=== PATIENT | male | born 1975 | race Caucasian/White ===

== ENCOUNTER 2016-08-10 10:37 | Emergency (ER) | payer MEDICAID ==
[2016-08-10 10:50] VITALS: PULSE 90; RESP 16; TEMP 98.1; O2SAT 94
--- NOTE | 2016-08-10 11:26 | EDPHY ---
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 He states this is similar to when he had a DVT and PE in the past. This was 2 years ago. He was on Coumadin for about 8 months. He is not currently anticoagulated. That DVT was caused secondary to an acute hospitalization and immobility. Denies any chest pain or shortness of breath. No fevers or chills. He did take an oxycodone last night for the pain. ROS: 10 point Review of Systems is negative except as noted in the HPI. Physical exam: Gen: Awake, Alert, No Distress HEENT: Nose: no rhinorrhea Eyes: PERRLA, EOMI Mouth: Moist mucosa Neck: Supple, no JVD Chest: nontender, lungs clear to auscultation Heart: S1, S2 normal, no murmur Abd: Soft, non-tender, no guarding Back: no CVA tenderness, no midline tenderness Ext: Left calf is mildly tender. There is swelling to his ankle and his foot, 2+ nonpitting. There is mild erythema. He has full flexion extension of his knee without pain or discomfort. Skin: no rash Neuro: CN II-XII intact, Sensation grossly intact, Strength 5/5 in bilateral upper and lower extremities ED Course: The left leg duplex ultrasound as interpreted by Dr. Delvalle: Recanalized with old left femoral to popliteal DVT, no acute findings. 40-year-old male with left foot swelling with an old left DVT. No acute clot at this time. Once patient received notification of his negative ultrasound he left the department prior to my re-evaluation and discussion with him. He did not stay for discharge instructions. General Time Seen by Provider: 08/10/16 11:04 Initial Vital Signs: Initial Vital Signs Temperature (C) 36.7 C 08/10/16 10:40 Heart Rate 90 08/10/16 10:40 Respiratory Rate 16 08/10/16 10:40 O2 Sat (%) 94 08/10/16 10:40 O2 Delivery Mode Room Air Allergies/Adverse Reactions: No Known Allergies Allergy (Verified 08/10/16 10:46) Home Medications: Medication Instructions Recorded GABAPENTIN 1,200 mg PO TID #30 tablet 02/29/16 Oxycodone Ir (*) 05/06/16 Pregabalin [Lyrica 75mg (*)] 75 mg PO BID 08/10/16 Departure - Departure Disposition: Home, Routine, Self-Care Clinical Impression: Swelling of lower extremity Condition: Good Instructions: Leg Edema (ED) Additional Instructions: Follow up with her primary care doctor in 3-4 days if not improved. Return to the emergency department for any concerns. Referrals: NONE *PRIMARY CARE P,. [Primary Care Provider] - As per Instructions
--- NOTE | 2016-08-10 12:38 | US ---
Venous Doppler Study of the left Lower Extremity Clinical Indications: Left foot swelling since last evening. Previous history of DVT left lower extr emity 2 years ago. Technique: High-frequency transducer was used for imaging and Doppler study of the deep veins of the leg from the upper calf to the groin. Pulsed Doppler and color Doppler were utilized, along with va rious maneuvers, to assess flow in the deep veins. Findings: The deep veins of the groin, thigh, knee, and upper calf are well displayed. There is part ial thrombus along the wall of the left mid to distal femoral vein and into the popliteal vein that p robably represents recanalized chronic thrombus. Acute intraluminal thrombus is not confirmed on imag es. The femoral vein is partially compressible in these locations. Doppler flow patterns are unremark able. There is no evidence of acute deep venous thrombosis. There is normal compression of the great er saphenous vein without superficial thrombosis. Impression: 1. No evidence of acute deep vein thrombosis in the left leg. 2. Probable recanalized thrombus left femoral vein to the popliteal vein. These findings were discussed by telephone with Dr. Wei Ann at 1236 hrs.
== END 2016-08-10 12:57 | disposition home or self-care (01) ==
DX: M79.89 Other specified soft tissue disorders (principal); Z86.718 Personal history of other venous thrombosis and embolism

== ENCOUNTER 2016-08-12 01:03 | Emergency (ER) | payer MEDICAID ==
[2016-08-12 01:17] VITALS: BP 128/79; PULSE 85; RESP 18; TEMP 98.1; O2SAT 91
--- NOTE | 2016-08-12 01:19 | EDPHY ---
HPI/HX/ROS/PE/MDM Narrative: Chief complaint: Left leg pain and swelling HPI: 40-year-old male with a known chronic DVT in his left leg presenting complaining of leg pain and swelling for several days. I saw him here in the emergency department 2 days ago. At that time he had an ultrasound which showed his old chronic recanalized DVT with no acute blood clot. Patient left the emergency department prior to my providing him with discharge instructions at that time. He states that he is presenting concerned that there is something wrong with his leg. There has been no change since he was here prior. No chest pain or shortness of breath. He has appointment to follow up with the primary care doc on . No redness. He has not been keeping it elevated. He has not been wearing compression stockings. ROS: 10 point Review of Systems is negative except as noted in the HPI. Physical exam: Gen: Awake, Alert, No Distress HEENT: Nose: no rhinorrhea Eyes: PERRLA, EOMI Mouth: Moist mucosa Neck: Supple, no JVD Chest: nontender, lungs clear to auscultation Heart: S1, S2 normal, no murmur Abd: Soft, non-tender, no guarding Back: no CVA tenderness, no midline tenderness Ext: 2+ edema in his left foot and calf, nonpitting edema, mild tenderness, no erythema. Physical exam has not changed from when I saw him 2 days ago. Skin: no rash Neuro: CN II-XII intact, Sensation grossly intact, Strength 5/5 in bilateral upper and lower extremities ED Course: Patient again left the emergency department without a compression stocking and without discharge paperwork. General Time Seen by Provider: 08/12/16 01:14 Initial Vital Signs: Initial Vital Signs Temperature (C) 36.7 C 08/12/16 01:15 Heart Rate 85 08/12/16 01:15 Respiratory Rate 18 08/12/16 01:15 Blood Pressure 128/79 H 08/12/16 01:15 O2 Sat (%) 91 L 08/12/16 01:15 O2 Delivery Mode Room Air Allergies/Adverse Reactions: No Known Allergies Allergy (Verified 08/10/16 10:46) Home Medications: Medication Instructions Recorded GABAPENTIN 1,200 mg PO TID #30 tablet 02/29/16 Oxycodone Ir (*) 05/06/16 Pregabalin [Lyrica 75mg (*)] 75 mg PO BID 08/10/16 Departure - Departure Disposition: Home, Routine, Self-Care Clinical Impression: Leg edema, Chronic deep vein thrombosis (DVT) Condition: Good Instructions: Leg Edema (ED) Additional Instructions: Wear compression stocking on your left leg at all times. Follow up with her primary care physician appointment on as scheduled. Keep your leg elevated when possible. Return to the emergency depart for increasing pain, chest pain, shortness of breath, fevers, chills, or any other concerns. Referrals: Patient,NotPresent [Primary Care Provider] - As per Instructions
== END 2016-08-12 01:52 | disposition home or self-care (01) ==
LOC: EDUNIT#
DX: I82.402 Acute embolism and thrombosis of unspecified deep veins of left lower extremity (principal)

== ENCOUNTER 2016-09-05 20:59 | Emergency (ER) | payer MEDICAID ==
--- NOTE | 2016-09-05 21:48 | EDPHY ---
H & P Time Seen by Provider: 09/05/16 21:08 HPI/ROS: CHIEF COMPLAINT: Mechanical fall, headache, neck pain HISTORY OF PRESENT ILLNESS: 40-year-old male presents to the emergency department complaining of diffuse headache and neck pain after he slipped and fell on some ice outside of his apartment. He does not think that he lost consciousness. He denies visual changes. He did injure his nose. He is having trouble breathing out of his nose. Denies dysphagia. He denies any presyncopal symptoms prior to his fall. Patient has a history of chronic pain and is on chronic opiates. He states his last dose was at 4:00 p.m. today. He is due for his medications and is requesting pain medications in the emergency department. He denies any other recreational substance abuse. Denies alcohol. REVIEW OF SYSTEMS: Constitutional: No fever, no chills. Eyes: No double or blurry vision. ENT: No sore throat. Respiratory: No cough, no shortness of breath. Cardiac: No chest pain. Gastrointestinal: No abdominal pain, vomiting or diarrhea. Genitourinary: No dysuria. Musculoskeletal: Neck pain. No back pain Skin: Nose laceration. No rashes. Neurological: Headache as above Past Medical/Surgical History: Chronic pain, narcotic dependence Social History: Single Smoking Status: Current every day smoker Physical Exam: General Appearance: Alert, no distress. Vital signs are stable. He is mentating normally and answering questions appropriately. His girlfriend is at bedside. Eyes: Pupils equal and round. Extraocular motions are all intact. ENT: Mouth: Mucous membranes moist. Dried blood noted to both nostrils. His nose is tender to palpate diffusely. He no malocclusion or other dental injury. Respiratory: No wheezing, rhonchi, or rales, lungs are clear to auscultation. Cardiovascular: Regular rate and rhythm. Gastrointestinal: Abdomen is soft and nontender, no masses, no rebound or guarding, bowel sounds normal. Neurological: Alert and oriented x 3, cranial nerves II through XII grossly intact Skin: 2 cm laceration to the anterior aspect of the nose. Warm and dry, no rashes. Musculoskeletal: Nontender to palpate along the cervical, thoracic or lumbar spine. Neck is supple. Extremities: Full range of motion and no peripheral edema. Psychiatric: Patient is oriented X 3, there is no agitation. Constitutional: Initial Vital Signs Temperature (C) 36.9 C 09/05/16 21:09 Heart Rate 95 09/05/16 21:09 Respiratory Rate 20 09/05/16 21:09 Blood Pressure 140/91 H 09/05/16 21:09 O2 Sat (%) 95 09/05/16 21:09 O2 Delivery Mode Room Air Allergies/Adverse Reactions: No Known Allergies Allergy (Verified 08/10/16 10:46) Home Medications: Medication Instructions Recorded GABAPENTIN 1,200 mg PO TID #30 tablet 02/29/16 Oxycodone Ir (*) 05/06/16 Pregabalin [Lyrica 75mg (*)] 75 mg PO BID 08/10/16 Cephalexin [Keflex] 500 mg PO QID #20 cap 09/05/16 Medical Decision Making - Diagnostics Imaging: CT imaging of the head and cervical spine reveal no intracranial bleeding. Degenerative changes noted on cervical spine. Acute right comminuted nasal bone fracture noted. This was reported to me by Dr. Caban. Procedures: Laceration repair. Verbal consent was obtained from the patient. The 2 cm laceration on the anterior nose was anesthetized using 1% lidocaine with epinephrine. The wound was irrigated with saline, draped and explored to its base with a gloved finger. There were no deep structures involved. The wound was repaired with 6 0 Prolene, 5 sutures. The wound repair was simple. The procedure was performed by myself. ED Course/Re-evaluation: 40-year-old male presents to the emergency department after mechanical fall injuring his head and neck. CT imaging of the head and cervical spine reveal nasal bone fracture and otherwise nothing acute. The laceration was repaired, see procedure note. Patient was given closed-head injury precautions. The patient was initially placed in cervical collar and this was removed after normal CT cervical spine noted. The patient was very upset that we did not give him narcotic medication. Explained to the patient that given his head injury I did not think that opiates were warranted. The patient was also very lethargic while repairing the laceration to his nose. I do not think opiates were indicated. This was explained to the patient as well as his girlfriend at bedside. His girlfriend verbalized understanding and agreed. Differential Diagnosis: Head injury including but not limited to concussion, skull fracture, intraparenchymal contusion, subarachnoid, subdural and epidural hematoma. Neck pain including but not limited to muscular pain, herniated disc, spine fracture - Data Points Medications Given: Discontinued Medications Cephalexin (Keflex 500 Mg Prepack#4) 1 btl TAKEJODI EDNOW ONE Stop: 09/05/16 23:36 Last Admin: 09/05/16 23:58 Dose: 1 btl Departure - Departure Disposition: Home, Routine, Self-Care Clinical Impression: Nasal bone fracture Qualifiers: Qualifier Code: (S02.2XXB) Fracture of nasal bones, initial encounter for open fracture Laceration of nose Qualifiers: Qualifier Code: (S01.21XA) Laceration without foreign body of nose, initial encounter Condition: Good Instructions: Nasal Fracture (ED), Laceration (ED), Care For Your Stitches (ED) , Acute Wound Care (ED) Additional Instructions: Wound Care Follow-Up: Removal of sutures in 5 days. Suture removal is complimentary in uncomplicated cases. Infection or abnormal findings would require reevaluation by the MD. In that case, you may be billed. Keflex as directed for 5 days to prevent infection. Ibuprofen 600mg every 8 hours for pain as directed. Return if you develop worsening headache, vomiting, or if you have altered mental status or if you feel worse in any way. Referrals: Ramakrishna Pastor MD [Medical Doctor] - 5-7 days, call for appt. (ENT on-call) Prescriptions: Cephalexin [Keflex] 500 mg PO QID #20 cap
--- NOTE | 2016-09-05 22:51 | CT ---
CT Scan of Head (Without Contrast) Clinical Indications: Trauma. Bloody nose. Posterior head pain. Technique: Axial CT images were acquired from foramen magnum through vertex, without intravenous con trast. Soft tissue and bone windows were reviewed on the computer workstation. Images were reconstr ucted down to 1.25-mm images. Dose reduction techniques were utilized. Findings: No mass lesions are seen, and there is no evidence of intracranial hemorrhage or acute inf arct. The ventricles and subarachnoid spaces are normal in size for this age group. There is a comm inuted nasal fracture on the right, also involving the tip of the nose. The rest of the facial bones are normal. There is mild ethmoid and maxillary mucosal thickening. Impressions 1. Nothing acute intracranially. 2. Nasal bone fracture. Findings are discussed with Lashanda Quiroz PA-C.
--- NOTE | 2016-09-05 22:53 | CT ---
CT Cervical Spine Indication: Trauma. Neck pain. Technique: 1.25-mm thick axial collimated slices were obtained from the occiput through the superior endplate of T2. The data was reconstructed in the sagittal and coronal plane. Both soft tissue and bone windows were reviewed. Appropriate images were stored on PACS. Dose reduction techniques were utilized. Findings: The occiput through T2 is anatomically aligned. No fracture or disk height loss. The par aspinal soft tissues are normal. Cervical spinal canal is grossly patent, with no discernible disk h erniation. The lung apices are clear. There is moderate degenerative disk height loss at C5-C6, with posterior osteophyte formation. No fo raminal or canal stenosis. Impression: No fracture or evidence of ligamentous injury. Degenerative change at C5-C6. Comment: Case was discussed with Lashanda Quiroz PA-C, at the time of completion.
[2016-09-05] MEDS ORDERED: CEPHALEXIN 500MG PREPACK#4 BTL TAKEHOME ONE (23:35)
[2016-09-06] VITALS: BP 112/79
[2016-09-10 19:24] VITALS: PULSE 82; RESP 16; TEMP 97.9; O2SAT 93
== END 2016-09-06 | disposition home or self-care (01) ==
PROC: 09QKXZZ Repair Nasal Mucosa and Soft Tissue, External Approach (ICD-10-PCS; principal; 2016-09-05)
DX: S02.2XXB Fracture of nasal bones, initial encounter for open fracture (principal); F17.200 Nicotine dependence, unspecified, uncomplicated; W01.0XXA Fall on same level from slipping, tripping and stumbling without subsequent striking against object, initial encounter; Y92.89 Other specified places as the place of occurrence of the external cause